=== PATIENT | female | born 1945 | race Caucasian/White ===

== ENCOUNTER 2017-06-01 09:47 | Outpatient (RCR) | payer MEDICARE, OTHER ==
[2017-05-31 10:33] VITALS: BP 119/90
[2017-05-31 10:48] LABS: PLATELET COUNT, AUTOMATED 257 K/uL (150-450)
[~2017-06-01 09:47] MED LIST: ACE3 PO; ALE70 PO; ALEN70TA43 PO; CALC-943 PO; CALC250T7 PO; CHOL100062 PO; CLON-327 PO; IBU800 PO; IBUP400T13 PO; LOPE1LIQ49 PO; MULT-885 PO; MULT1CAP59 PO; OMEG500C7 PO; RANI-324 PO; VEN75 PO; VENL75CA58 PO; [UNRECOGNIZED DRUG - CODE] PO
== END 2017-06-01 15:20 | disposition home or self-care (01) ==
LOC: RAON 09:47
PROVIDERS: ATTEND Radiology Radiation Oncology
DX: C54.1 Malignant neoplasm of endometrium (principal)
CPT/HCPCS: 36415; 85025; 86304; G0463; 82040; 82247; 82310; 82374; 82435; 82565; 82947; 84075; 84132; 84155; 84295; 84450; 84460; 84520; 99212

== ENCOUNTER → 2017-07-13 | Outpatient (CLI) | payer MEDICARE, OTHER ==
[~2017-07-13] MED LIST changes: +CHOL10005 PO
--- NOTE | 2017-07-15 09:36 | RADIOLOGY IMAGING REPORT ---
FACILITY: [facility] [place] PATIENT NAME: MIGUEL GORE : [id number] MR: [id number] V: [id number] EXAM DATE: [id number] ORDERING PHYSICIAN: CYNTHIA MCLEOD TECHNOLOGIST: Ana Salazar PROCEDURE:BILATERAL DIGITAL SCREENING MAMMOGRAM WITH CAD ASSISTED INTERPRETATION & 3D TOMOSYNTHESIS COMPARISON:Prior mammograms 07/09/16, 07/08/15, 12/27/14, 06/20/14, 12/26/13, 12/14/13 INDICATIONS:screening FINDINGS: Moderately heterogeneous fibroglandular tissue is seen throughout the breasts. The parenchymal pattern has remained stable allowing for difference in mammographic technique & patient positioning. There is no evidence of malignant appearing mass, malignant appearing calcifications or other secondary sign of malignancy in either breast. DIAGNOSTIC CATEGORY 1--NEGATIVE. RECOMMENDATIONS: ROUTINE MAMMOGRAM AND CLINICAL EVALUATION. IMPRESSION: BIRADS 2: Negative No significant abnormality is seen. Dictated by: Ruby Hill M.D. on 07/14/2017 at 17:02 Transcribed by: CARIDAD on 07/15/2017 at 8:37 Approved by: Ruby Hill M.D. on 07/15/2017 at 9:35 [facility]
== END ==
LOC: MAMO 02:22
PROVIDERS: ATTEND Obstetrics & Gynecology
DX: Z12.31 Encounter for screening mammogram for malignant neoplasm of breast (principal)
CPT/HCPCS: 77063; 77067

== ENCOUNTER 2017-11-24 13:00 | Outpatient (RCR) | payer MEDICARE, OTHER ==
--- NOTE | 2017-09-10 18:18 | PT INITIAL EVALUATION ---
MEDICAL DIAGNOSIS: low back pain and radiculopathy TREATMENT DIAGNOSIS: same DATE OF ONSET: 07/28/17 SUBJECTIVE: Lianet Lindsay presents to physical therapy with complaints of low back pain with radiating pain down her B LE's that started approximately 6 weeks ago. She reports that the last two weeks the low back pain and the leg pain has been getting worse and worse. She reports that she has increased pain with sitting, standing, and lying. She reports that she has decreased pain with bending and walking. She denies any increase in pain with coughing, sneezing, or straining. She denies any abnormal or changes in bowel or bladder or gait since the low back pain has started. She reports that she has history of stress fractures around her hip. She reports that her hip stress fracture approximately 2 years ago has healed well. She reports that she had a xray, which showed normal bone structure and no current stress fractures. Pain location is L3-S1 central spinous process and described as achiness, sharp, tingling. Pain scale is 5 on a ten point pain scale. REHAB PROBLEM LIST: Increased Pain Decreased ROM Decreased Strength Decreased Endurance Decreased Function PREVIOUS MEDICAL HISTORY: See EMR OCCUPATION: Retired OBJECTIVE: Posture: She demonstrated minimal rounded shoulders, minimal increased thoracic kyphosis, decreased lumbar lordosis. She did not have a lateral shift. ROM: Trunk AROM: flexion: NIL with muscular end feel. extension: NIL with muscular end feel. side gliding R: minimal restriction with painful end feel. side gliding L: minimal restriction with painful end feel. Palpation: She was TTP with the following structures: L3-S1 central spinosus process. Sensation: B L3-S1 decreased Special Tests: Repeated extension in lying: pain during the test and peripheralized pain following the test (worse). Repeated flexion in lying: stretch during the test and better/centralized pain following the test. Mobility: Independent ASSESSMENT: Lianet will benefit from skilled physical therapy addressing the listed impairments to improve function and QOL. Based on the examination, her provisional classification is derangement that responded well to flexion based principles with centralization, which is an extremely positive result and great predictor for recovery of function. Short Term Goals 2 weeks: Pt will demonstrate centralized low back pain to improve function and QOL. 4 weeks: Pt will demonstrate abolished low back pain to improve function and QOL. 6 weeks: Pt will return to prior level of function with 0/10 LBP to improve function and QOL. Patient's Goals reduce pain and return to walking PLAN: Patient to be seen for Manual Therapy/STM/MET Strengthening/condition Range of Motion Spinal Stabilization Work Hardening/Cond Stretching Neuromuscular Re-ed Closed Chain Program Posture/Body mechanics Home Exercise Program Therapeutic Activities 2x/Week for 6 Weeks If you have any questions, comments, or concerns about this report or plan, please contact me at . Thank you, Dimas Resendez, PT, DPT MTDD
--- NOTE | 2017-10-15 16:46 | PT PLAN OF CARE ---
Physician: Jaydon Cuenca MD Patient is being seen: 2x/week Therapist: Dimas Resendez, PT, DPT Medical Diagnosis: low back pain and radiculopathy Treatment Diagnosis: same Date of Onset: 07/28/17 Date of Initial Evaluation: 09/10/17 Date patient was last seen: 10/15/17 Number of treatments: 10 Number of cancellations: 1 INTERVENTIONS: Manual Therapy/STM/MET Strengthening/condition Range of Motion Spinal Stabilization Work Hardening/Cond Stretching Neuromuscular Re-ed Closed Chain Program Posture/Body mechanics Home Exercise Program Therapeutic Activities GOALS: 2 weeks: Pt will demonstrate centralized low back pain to improve function and QOL. MET 4 weeks: Pt will demonstrate abolished low back pain to improve function and QOL. Progressing 6 weeks: Pt will return to prior level of function with 0/10 LBP to improve function and QOL. Progressing PATIENT'S GOAL: reduce pain and return to walking Status of Patient's Goals: Progressing Patient Compliance: Good Prognosis: Excellent Reasons for continuing therapy: This is progress note for Lianet Lindsay. She reports that she is doing much better. She reports that she no longer has radiating pain down her B LE's. Furthermore, she reports that she has been able to get up in the morning without any pain, which she reports is a significant improvement. She reports that she continues to have some residual pain around her R posterior hip from the stress fractures but is able to walk and it goes away quickly. She reports that she continues to have some sporadic tingling in her R or L feet. She continues to demonstrate directional preference, centralization, and the pain is starting to abolish with continued repeated movements. Furthermore, she demonstrates full trunk AROM in all directions with normal end feels. Once the pain has completely abolished, we will return to prior level of function with core and B LE strengthening. Posture: She demonstrated minimal rounded shoulders, minimal increased thoracic kyphosis, decreased lumbar lordosis. She did not have a lateral shift. ROM: Trunk AROM: flexion: NIL with muscular end feel. extension: NIL with muscular end feel. side gliding R: NIL with muscular end feel. side gliding L: NIL with muscular end feel. Special Tests: Repeated extension in lying: pain during the test and centralized pain following the test (better). Repeated flexion in lying: stretch during the test and worse/peripheralized pain following the test. Mobility: Independent If you have any questions, please contact me at [phone]. Thank you, Dimas Resendez PT, DPT VIVIAN
[~2017-11-24 13:00] MED LIST changes: -RANI-324 PO; +RANI-366 PO
== END 2017-12-09 ==
LOC: PT 13:00
PROVIDERS: ATTEND Orthopaedic Surgery
DX: M54.16 Radiculopathy, lumbar region (principal); M54.5 Low back pain
CPT/HCPCS: 97162

== ENCOUNTER 2017-12-24 02:51 | Day surgery (SDC) | payer MEDICARE, OTHER ==
[~2017-12-24] VITALS: Ht 162.6 cm; Wt 70.3 kg
[~2017-12-24 02:51] MED LIST changes: +CALC600T63 PO; +IBUP-56 PO
[2017-12-24 14:43] VITALS: BP 158/93
[2017-12-24] MEDS ORDERED: acetaZOLAMIDE 500 MG CAPCR PO ONE (15:00)
[2017-12-24] MEDS ORDERED: OPHTHALMIC PROCEDURE 2 OS PRN ×2 (15:00)
[2017-12-24] MEDS ORDERED: OPHTHALMIC PROCEDURE 1 OS PRN (15:00)
[2017-12-24] MEDS ORDERED: LIDOCAINE/SOD BICARB 8.4% SYR ID ONE (15:30)
[2017-12-24] MEDS ORDERED: NORMOSOL R SOLN(*) 1000 ML BAG 1,000 ML IV PRN (15:30)
[2017-12-24 16:30] VITALS: BP 157/97
--- NOTE | 2017-12-24 18:15 | FOSTER LEFT EYE CATARACT ---
EVENT DATE: December 24, 2017 SURGEON: French Kohli MD ANESTHESIA: Topical PREOPERATIVE DIAGNOSIS Cataract, left eye. POSTOPERATIVE DIAGNOSIS Cataract, left eye. PROCEDURE Phacoemulsification of cataractous lens with implantation of an intraocular lens, left eye. DESCRIPTION OF PROCEDURE The risks, benefits, and alternatives were carefully discussed with the patient, and preoperative consent was obtained. The patient was brought to the operating room after receiving topical anesthetic. The patient was prepped and draped using sterile technique in the usual manner. A stab incision was made, and the chamber was inflated with preservative-free lidocaine. DuoVisc was injected to inflate the chamber. A 2.2 mm blade was used to enter the anterior chamber. Utrata forceps were used to tear a circular capsulorrhexis. BSS was used to hydrodissect the nucleus. Phaco tip was introduced, and the nucleus was chopped into four quadrants. Each quadrant was removed. The I/A tip was used to remove the cortex. The bag was inflated with ProVisc. The intraocular lens was injected into the capsular bag. The I/A tip was used to remove the ProVisc. The wound was found to be watertight. Vigamox, Nevanac, and Maxitrol ointment were placed in the patient's eye. The patient's eye was patched, and the patient was taken to the recovery room in stable condition. The patient was examined in the recovery room and found to be stable prior to release from the hospital. VIVIAN
== END 2017-12-24 16:50 | disposition home or self-care (01) ==
LOC: OR 02:51
PROVIDERS: ATTEND Ophthalmology
DX: H25.12 Age-related nuclear cataract, left eye (principal)
CPT/HCPCS: 66984; A9270; V2632

== ENCOUNTER 2018-01-06 13:00 | Outpatient (RCR) | payer MEDICARE, OTHER ==
--- NOTE | 2017-12-30 14:53 | PT PLAN OF CARE ---
Physician: Jaydon Cuenca MD Patient is being seen: 2x/week Therapist: Dimas Resendez, PT, DPT Medical Diagnosis: low back pain and radiculopathy Treatment Diagnosis: same Date of Onset: 07/28/17 Date of Initial Evaluation: 09/10/17 Date patient was last seen: 12/30/17 Number of treatments: 20 Number of cancellations/No shows: 0 INTERVENTIONS: Manual Therapy/STM/MET Strengthening/condition Range of Motion Spinal Stabilization Work Hardening/Cond Stretching Neuromuscular Re-ed Closed Chain Program Posture/Body mechanics Home Exercise Program Therapeutic Activities GOALS: 2 weeks: Pt will demonstrate centralized low back pain to improve function and QOL. MET 4 weeks: Pt will demonstrate abolished low back pain to improve function and QOL. Progressing 6 weeks: Pt will return to prior level of function with 0/10 LBP to improve function and QOL. Progressing PATIENT'S GOAL: reduce pain and return to walking Status of Patient's Goals: Progressing Patient Compliance: Good Prognosis: Excellent Reasons for continuing therapy: This is progress note for Lianet Lindsay. She reports that she continues to be stiff in the AM and then gets better with a few hours. However, as the day progresses, the pain continues to become worse. She reports that the pain continues to restrict her standing and walking. She denies any pain her her low back. However, she reports increased lower leg pain in B; however, L>R. She rates her L lower leg to be 8/10. She rates her R lower leg to be 6-7/10. She reports that the MRI revealed a posterior bulging disc.She continues to demonstrate directional preference with extension; therefore, it appears that her provisional classification will be a posterior derangement that responds to extension based principles to improve trunk AROM in all directions and relieve some symptoms so that she can return to standing and walking with abolished pain or decreased pain to improve her overall QOL. Posture: She demonstrated minimal rounded shoulders, minimal increased thoracic kyphosis, decreased lumbar lordosis. She did not have a lateral shift. ROM: Trunk AROM: flexion: NIL with muscular end feel. extension: NIL with muscular end feel. side gliding R: NIL with muscular end feel. side gliding L: NIL with muscular end feel. Special Tests: Repeated extension in lying: pain during the test and centralized pain following the test (better). Repeated flexion in lying: stretch during the test and worse/peripheralized pain following the test. Mobility: Independent If you have any questions, please contact me at [phone]. Thank you, Dimas Resendez, PT, DPT GUYD
--- NOTE | 2018-01-17 10:24 | PT PLAN OF CARE ---
Physician: Jaydon Cuenca MD Patient is being seen: 2x/week Therapist: Dimas Resendez, PT, DPT Medical Diagnosis: low back pain and radiculopathy Treatment Diagnosis: same Date of Onset: 07/28/17 Date of Initial Evaluation: 09/10/17 Date patient was last seen: 01/06/18 Number of treatments: 22 Number of cancellations/No shows: 1 INTERVENTIONS: Manual Therapy/STM/MET Strengthening/condition Range of Motion Spinal Stabilization Work Hardening/Cond Stretching Neuromuscular Re-ed Closed Chain Program Posture/Body mechanics Home Exercise Program Therapeutic Activities GOALS: 2 weeks: Pt will demonstrate centralized low back pain to improve function and QOL. MET 4 weeks: Pt will demonstrate abolished low back pain to improve function and QOL. Progressing 6 weeks: Pt will return to prior level of function with 0/10 LBP to improve function and QOL. Progressing PATIENT'S GOAL: reduce pain and return to walking Status of Patient's Goals: Progressing Patient Compliance: Good Prognosis: Excellent Reasons for continuing therapy: This is a discharge note for Lianet Lindsay. She reports that she continues to be stiff in the AM and then gets better with a few hours. However, as the day progresses, the pain continues to become worse. She reports that the pain continues to restrict her standing and walking. She denies any pain her her low back. However, she reports increased lower leg pain in B; however, L>R. She rates her L lower leg to be 8/10. She rates her R lower leg to be 6-7/10. She reports that the MRI revealed a posterior bulging disc.She continues to demonstrate directional preference with extension; therefore, it appears that her provisional classification will be a posterior derangement that responds to extension based principles to improve trunk AROM in all directions and relieve some symptoms so that she can return to standing and walking with abolished pain or decreased pain to improve her overall QOL. She was asked to discharge from PT at this time and will return when it is the right time. As a result, she will be discharged from formal PT to [facility]. Posture: She demonstrated minimal rounded shoulders, minimal increased thoracic kyphosis, decreased lumbar lordosis. She did not have a lateral shift. ROM: Trunk AROM: flexion: NIL with muscular end feel. extension: NIL with muscular end feel. side gliding R: NIL with muscular end feel. side gliding L: NIL with muscular end feel. Special Tests: Repeated extension in lying: pain during the test and centralized pain following the test (better). Repeated flexion in lying: stretch during the test and worse/peripheralized pain following the test. Mobility: Independent If you have any questions, please contact me at [phone]. Thank you, Dimas Resendez, PT, DPT VIVIAN
== END 2018-01-06 18:00 | disposition home or self-care (01) ==
LOC: PT 13:00
PROVIDERS: ATTEND Orthopaedic Surgery
DX: M54.16 Radiculopathy, lumbar region (principal); M54.5 Low back pain

== ENCOUNTER 2018-02-18 03:30 | Day surgery (SDC) | payer MEDICARE, OTHER ==
[~2018-02-18] VITALS: Ht 162.6 cm; Wt 70.8 kg
[~2018-02-18 03:30] MED LIST changes: +GABA-549 PO
[2018-02-18 14:00] VITALS: BP 136/87
[2018-02-18] MEDS ORDERED: LIDOCAINE/SOD BICARB 8.4% SYR ID ONE (14:30)
[2018-02-18] MEDS ORDERED: OPHTHALMIC PROCEDURE 1 OD PRN (14:30)
[2018-02-18] MEDS ORDERED: OPHTHALMIC PROCEDURE 2 OD PRN ×2 (14:30)
[2018-02-18] MEDS ORDERED: NORMOSOL R SOLN(*) 1000 ML BAG 1,000 ML IV PRN (14:30)
[2018-02-18] MEDS ORDERED: acetaZOLAMIDE 500 MG CAPCR PO ONE (14:30)
[2018-02-18] MEDS ORDERED: PROPOFOL EMUL(*) 10MG/ML 20 ML 0 ML ONE (15:26)
[2018-02-18] MEDS ORDERED: MIDAZOLAM 2 MG/2 ML VIAL ONE (15:26)
[2018-02-18] MEDS ORDERED: fentaNYL CITR 100 MCG/2 ML AMP ONE (15:26)
[2018-02-18 15:46] VITALS: BP 142/89
--- NOTE | 2018-02-18 18:19 | FOSTER RIGHT EYE CATARACT ---
EVENT DATE: February 18, 2018 SURGEON: French Kohli MD ANESTHESIOLOGIST: Dimas Packer MD ANESTHESIA: MAC PREOPERATIVE DIAGNOSIS Cataract, right eye. POSTOPERATIVE DIAGNOSIS Cataract, right eye. PROCEDURE Phacoemulsification of cataractous lens with implantation of an intraocular lens, right eye. DESCRIPTION OF PROCEDURE The risks, benefits, and alternatives were carefully discussed with the patient, and preoperative consent was obtained. The patient was brought to the operating room after receiving topical anesthetic. The patient was prepped and draped using sterile technique in the usual manner. A stab incision was made, and the chamber was inflated with preservative-free lidocaine. DuoVisc was injected to inflate the chamber. A 2.2 mm blade was used to enter the anterior chamber. Utrata forceps were used to tear a circular capsulorrhexis. BSS was used to hydrodissect the nucleus. Phaco tip was introduced, and the nucleus was chopped into four quadrants. Each quadrant was removed. The I/A tip was used to remove the cortex. The bag was inflated with ProVisc. The intraocular lens was injected into the capsular bag. The I/A tip was used to remove the ProVisc. The wound was found to be watertight. Vigamox, Nevanac, and Maxitrol ointment were placed in the patient's eye. The patient's eye was patched, and the patient was taken to the recovery room in stable condition. The patient was examined in the recovery room and found to be stable prior to release from the hospital. VIVIAN
== END 2018-02-18 16:04 | disposition home or self-care (01) ==
LOC: OR 03:30
PROVIDERS: ATTEND Ophthalmology
DX: H25.11 Age-related nuclear cataract, right eye (principal)
CPT/HCPCS: 66984; A9270; J2250; J3010; V2632; J2704

== ENCOUNTER 2018-03-21 14:30 | Outpatient (RCR) | payer MEDICARE, OTHER ==
--- NOTE | 2018-02-28 15:27 | PT INITIAL EVALUATION ---
MEDICAL DIAGNOSIS: low back pain and radiculopathy TREATMENT DIAGNOSIS: same DATE OF ONSET: 07/28/17 SUBJECTIVE: Lianet Lindsay presents to physical therapy with complaints of core and B LE strength weakness that has developed as a result of a lot of low back pain with radiating pain. She states that the radiating pain is completely abolished following a string of injections. Furthermore, she reports that she feels some stiffness/pain in low back region that she can abolish with performing standing back extension. Overall, she feels like the low back injury is doing well and continues to feel weak in her B LE's and core and would like a home exercise program to overcome that weakness that was created by the intense pain. Furthermore, she reports that she feels like she is dragging her R foot with gait that she would like to address. Furthermore, she feels like her R LE feels more weak than her L LE. She reports that she has returned to water aerobic and walking about a mile and she feels like she is limited by her bodies limits versus any pain. Pain location is L5 spinous process region if any and described as soreness. Pain scale is 0 on a ten point pain scale. REHAB PROBLEM LIST: Decreased ROM Decreased Strength Decreased Endurance Decreased Balance Decreased Function Decreased ADL's Decreased Gait PREVIOUS MEDICAL HISTORY: See EMR OCCUPATION: Retired OBJECTIVE: Posture: She demonstrated B rounded shoulders, increased thoracic kyphosis, and decreased lumbar lordosis. ROM: Trunk AROM: flexion: NIL with normal end feel. extension: NIL with normal end feel. R/L sidegliding: NIL with normal end feel. Strength: Core: low: 4-/5, middle: 4-/5, upper: 4/5 with no pain. R hip flexion: 3+/5. L hip flexion: 4/5. R hip abduction: 3+/5, L hip abduction: 4/5. B hip adduction: 5/5. B hip extension: 4/5. B knee flexion: 4/5. B ankle DF and PF: 4/5. B knee extension: 5/5. She did not have any pain with any of the MMT's. Palpation: TTP: if any, today, she was not tender to palpation Mobility: Independent Gait: Without any AD, she demonstrated the following gait mechanics: normal base of support, decreased B UE movement, decreased B step lengths, R hip drop with initial contact to loading phase, decreased velocity, decreased pelvic rotation, and normal B feet clearance. ASSESSMENT: Lianet will benefit from skilled physical therapy addressing the listed impairments to improve function and return to prior level of function. Short Term Goals 4 weeks: Pt will be independent with her home exercise program to reduce reoccurrences and increase core and B LE strength to improve function and QOL. 4 weeks: Pt will demonstrate completely abolished low back pain and return to prior level of function. Patient's Goals to improve strength PLAN: Patient to be seen for Manual Therapy/STM/MET Strengthening/condition Range of Motion Spinal Stabilization Work Hardening/Cond Stretching Neuromuscular Re-ed Closed Chain Program Posture/Body mechanics Gait Trg/Balance Trg Home Exercise Program Therapeutic Activities 2x/Week for 4 Weeks If you have any questions, comments, or concerns about this report or plan, please contact me at . Thank you, Dimas Resendez, PT, DPT GUYD
--- NOTE | 2018-03-22 11:41 | PT PLAN OF CARE ---
Physician: Deonte Crocker MD Patient is being seen: 1-2x/week Therapist: Dimas Resendez, PT, DPT Medical Diagnosis: low back pain and radiculopathy Treatment Diagnosis: same Date of Onset: 07/28/17 Date of Initial Evaluation: 02/28/18 Date patient was last seen: 03/21/18 Number of treatments: 4 Number of cancellations/No shows: 0 INTERVENTIONS: Manual Therapy/STM/MET Strengthening/condition Range of Motion Spinal Stabilization Work Hardening/Cond Stretching Neuromuscular Re-ed Closed Chain Program Posture/Body mechanics Gait Trg/Balance Trg Home Exercise Program Therapeutic Activities GOALS: 4 weeks: Pt will be independent with her home exercise program to reduce reoccurrences and increase core and B LE strength to improve function and QOL. 4 weeks: Pt will demonstrate completely abolished low back pain and return to prior level of function. PATIENT'S GOAL: to improve strength Status of Patient's Goals: [g OPPT.GOALS] Patient Compliance: [g PT.GFPNA] Prognosis: Excellent Reasons for continuing therapy: This is a progress note for Lianet Lindsay. She reports that she is doing well. She reports that she continues to perform her home exercises with good results. She feels like the strength is coming back. She reports that she continues to work on her walking. Overall, she reports that she feels like she is independent with all of her exercises. She has progressed well within PT. She continues to demonstrate directional preference with her low back and continues to have abolished low back pain along with B lower leg pain. Furthermore, she continues to demonstrate improvements with endurance as she can ambulate further without the pain returning to her lower legs. She also continues to demonstrate increased core and B LE strength especially in the L LE returning and will continue to return as she performs her home exercise program. She is independent with her home exercise program. She was educated and given strategies to prevent reoccurrences in the future. As a result, she will be discharged from PT to [facility]. Posture: She demonstrated B rounded shoulders, increased thoracic kyphosis, and decreased lumbar lordosis. ROM: Trunk AROM: flexion: NIL with normal end feel. extension: NIL with normal end feel. R/L sidegliding: NIL with normal end feel. Strength: Core: low: 4/5, middle: 4/5, upper: 4+/5 with no pain. R hip flexion: 4-/5. L hip flexion: 4/5. R hip abduction: 4-/5, L hip abduction: 4+/5. B hip adduction: 5/5. B hip extension: 4+/5. B knee flexion: 4/5. B ankle DF and PF: 4/5. B knee extension: 5/5. She did not have any pain with any of the Palpation: TTP: if any, today, she was not tender to palpation Mobility: Independent If you have any questions, please contact me at [phone]. Thank you, Dimas Resendez, PT, DPT MTDD
== END 2018-03-21 18:00 | disposition home or self-care (01) ==
LOC: PT 14:30
PROVIDERS: ATTEND Physical Medicine & Rehabilitation Pain Medicine
DX: M54.16 Radiculopathy, lumbar region (principal); M62.81 Muscle weakness (generalized)
CPT/HCPCS: 97161

== ENCOUNTER 2018-06-14 13:00 | Outpatient (RCR) | payer MEDICARE, OTHER ==
[2018-06-07 10:20] VITALS: BP 147/93
[2018-06-14 13:09] VITALS: BP 130/87
[2018-06-14 14:09] LABS: PLATELET COUNT, AUTOMATED 253 K/uL (150-450)
--- NOTE | 2018-06-14 23:17 | ONCOLOGY FOLLOW UP NOTE ---
EVENT DATE: June 14, 2018 CHIEF COMPLAINT/REASON FOR EVALUATION Known history of endometrial carcinoma. Patient is here for annual oncology surveillance appointment. ONCOLOGY HISTORY 1. Stage IB endometrioid adenocarcinoma. Status post FRANKLYN/BSO with pelvic lymph node oncologic staging 06/2011 at [facility]. Tumor demonstrating deep myometrial invasion with referral for postoperative radiation therapy. 2. Patient received adjuvant external beam radiation therapy to 5040 cGy in 28 fractions, completed 09/2011. 3. Patient experienced periaortic lymph node recurrence, which was treated with external beam radiotherapy with five-field IMRT approach to 5400 cGy in 30 fractions with radiation completed 05/04/12. HISTORY OF PRESENT ILLNESS/INTERVAL HISTORY Lianet is seen for an annual followup appointment in her office. Overall, she is doing remarkably well. She is now six years remote from her last cancer treatment. She states her bowels are moving normally. She occasionally has some excessive urinary leakage, but she is working on exercises for that. She states that the bladder frequency changed somewhat after her original surgery in 2011. Over the past year, the patient has been experiencing some problems with right leg sciatica and a mild foot drop initially. She was seen by Dr. Crocker, and she had an injection with significant improvement in her symptom complex. She is now working on exercises that were given to her by Physical Therapy with good effect. No foot drop at this time. She generally takes ibuprofen twice daily for lower back pain. Patient has tumor marker drawn prior to this appointment, which was normal at 21. She will have a CBC and CMP drawn today and will phone results to her within 24 hours. The patient had a colonoscopy performed two years ago and was told there were no polyps, so she does not need another scope for 10 years. The patient has predominantly been seen by Jayla Magana CNP, for her medical needs and is consolidating care in their office at this time. MEDICATIONS 1. Ibuprofen 400 mg b.i.d. 2. Calcium with vitamin D. 3. Effexor 75 mg ER q. day. 4. Clonidine 0.1 mg b.i.d. ALLERGIES None. PAST MEDICAL HISTORY 1. Endometrial carcinoma x2 (first uterus, then periaortic lymph node recurrence). See HPI. 2. Degenerative spine disease with disk. 3. Hypertension. SURGICAL HISTORY 1. FRANKLYN/BSO, pelvic lymph node staging 06/22/11. 2. Adjuvant pelvic radiation therapy to 5040 cGy completed 09/2011. 3. Therapeutic radiation to the periaortic lymph node chain 5400 cGy in 30 fractions, completed 05/04/12. FAMILY HISTORY Negative for carcinoma. 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 . 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 REVIEW OF SYSTEMS Essential negative with the exception of a herniated disk at L5, occasional bone and joint stiffness, mild constipation. States occasionally bruises easily. PHYSICAL EXAMINATION GENERAL: Pleasant 72-year-old female, appears younger than her stated age. VITAL SIGNS: BP 130/80, pulse 80, respirations 16, O2 sat 98% on room air. Weight 162 and stable. LYMPHATICS: No lymphadenopathy. LUNGS: Clear bilaterally. HEART: Sounds regular. No murmur. ABDOMEN: No organomegaly, mass, or tenderness. EXTREMITIES: No edema or cyanosis. Straight leg raise maneuvers, patient experiences slight switching in the right foot with full sciatic extension. No foot drop. Equal motor strength in the lower extremities bilaterally today. No edema. IMPRESSION No evidence of active malignancy. Patient has done exceptionally well to date in my opinion. PLAN Patient will have a CBC and CMP drawn this afternoon. She will return to clinic in a year with CBC, CMP, and CA-125 tumor marker. See sooner if she is having any progressive weight loss or any unilateral edema. She will follow up with Dr. Crocker regarding her back as needed. She would like to consolidate her primary care to Jayla Magana CNP, at this time. VIVIAN
== END 2018-08-26 12:15 | disposition home or self-care (01) ==
LOC: RAON 13:00
PROVIDERS: ATTEND Radiology Radiation Oncology
DX: Z85.42 Personal history of malignant neoplasm of other parts of uterus (principal); Z92.3 Personal history of irradiation
CPT/HCPCS: 36415; 85025; 86304; G0463; 82040; 82247; 82310; 82374; 82435; 82565; 82947; 84075; 84132; 84155; 84295; 84450; 84460; 84520; 99212

== ENCOUNTER → 2018-07-14 | Outpatient (CLI) | payer MEDICARE, OTHER ==
--- NOTE | 2018-07-15 11:15 | RADIOLOGY IMAGING REPORT ---
FACILITY: [facility] PATIENT NAME: MIGUEL GORE : [id number] MR: [id number] V: [id number] EXAM DATE: [id number] ORDERING PHYSICIAN: LORAINE MARAVILLA TECHNOLOGIST: Eileen Atkinson PROCEDURE:BILATERAL DIGITAL SCREENING MAMMOGRAM WITH CAD ASSISTED INTERPRETATION & 3D TOMOSYNTHESIS COMPARISON:Prior mammograms 07/13/17, priors to 06/20/14. INDICATIONS:SCREENING FINDINGS: Breast parenchyma is heterogeneously dense. There are no mammographic findings concerning for malignancy. No significant interval mammographic change. DIAGNOSTIC CATEGORY 1--NEGATIVE. RECOMMENDATIONS: ROUTINE MAMMOGRAM AND CLINICAL EVALUATION IN 1 YR. IMPRESSION: BIRADS 1: Negative. Dictated by: Deonte Zamorano on 07/15/2018 at 9:10 Transcribed by: CARIDAD on 07/15/2018 at 10:49 Approved by: Deonte Zamorano on 07/15/2018 at 11:14 [facility]
== END ==
LOC: MAMO 00:46
PROVIDERS: ATTEND Nurse Practitioner Family
DX: Z12.31 Encounter for screening mammogram for malignant neoplasm of breast (principal)
CPT/HCPCS: 77063; 77067

== ENCOUNTER → 2018-10-12 | Outpatient (CLI) | payer MEDICARE, OTHER ==
[~2018-10-12] MED LIST changes: -RANI-366 PO; +RANI-54 PO
--- NOTE | 2018-10-12 11:10 | RADIOLOGY IMAGING REPORT ---
[place] [facility] [place] NAME: Lianet Lindsay : 1945 MR: [id number] V: [id number] EXAM DATE: ORDERING PHYSICIAN: LORAINE MARAVILLA TECHNOLOGIST: Location: [facility] Patient: Lianet Lindsay : 1945 Visit/Account:[id number] Date of Sevice: 10/12/2018 DEXA Scan Clinical history: Postmenopausal osteopenia. Comparison: DEXA scan from 10/16/2016. LUMBAR SPINE: The bone mineral density (BMD) measured from L1-L4 correlates with a Z-score of -0.1 and a T-score of -1.5 which is osteopenia as defined by the World Health Organization. The corresponding risk of fra cture in the lumbar spine is 3 times increased compared with a young adult reference population. Thi s value has decrease by 1.9 % since the prior study. More than 5% change is considered significant. HIP: Bone mineral density (BMD) measured in the LEFT total hip region correlates with a Z-score 0.8 and a T-score of -0.5 which is normal as defined by the World Health Organization. The corresponding risk of fracture in the hip is 1-2 t imes increased compared to a young adult reference population. This value has decrease by 2.5 % since the prior study. More than 5% change is considered significant. T score left femoral neck -1.1 Bone mineral density (BMD) measured in the Femoral Neck region measures 0.886 g/cm?. IMPRESSION: 1. Lumbar spine: Osteopenia. There has been 1.9% decrease in the bone mineral density since the pre vious exam. 2. Left Total Hip: Normal. There has been 2.5% decrease in the bone mineral density since the previ ous exam. 3. Femoral Neck: Bone Mineral Density is 0.886 g/cm? The next DEXA scan of this patient should include the following sites: L1-L4 and the left hip. FRAX? WHO Fracture Risk Assessment Tool link: <http://www.shef.ac.uk/FRAX/tool.jsp?locationValue=9> PLEASE NOTE: 1) The World Health Organization defines low BMD as follows: T-score Normal > -1 Osteopenia < -1 and > -2.5 Osteoporosis < -2.5 without fractures Established osteoporosis < -2.5 with fractures 2) In general, you may wish to consider: Diagnosis Treatment Follow-up DEXA Normal BMD Prevention 2-3 years Osteopenia Prevention/therapy 1-2 years Osteoporosis Therapy Yearly 3) Fracture risk estimated from the T-score is more accurate for vertebral fractures (often spontane ous) than for hip fractures. Report Dictated By: Ruby Hill MD at 10/12/2018 11:03 AM Report E-Signed By: Ruby Hill MD at 10/12/2018 11:04 AM JANNAN:BLAISEVSue
== END ==
LOC: RAD 01:25
PROVIDERS: ATTEND Nurse Practitioner Family
DX: M85.88 Other specified disorders of bone density and structure, other site (principal)
CPT/HCPCS: 77080